=== PATIENT | male | born 1975 | race Caucasian/White ===

== ENCOUNTER 2017-05-06 12:30 | Emergency (ER) | payer OTHER ==
--- NOTE | ~2017-05-06 | EKG ---
PATIENT: CAROL RAMOS UNIT #: [id number] Ventricular Rate: 94 BPM Atrial Rate: 94 BPM P-R Interval: 144 ms QRS Duration: 82 ms Q-T Interval: 360 ms QTC Calculation(Bezet): 450 ms P [place]: 77 degrees Calculated R [place]: 48 degrees Calculated T [place]: 44 degrees Diagnosis Line: Normal sinus rhythm Diagnosis Line: Normal ECG Diagnosis Line: No previous ECGs available Diagnosis Line: Confirmed by INDIRA HERNDON MD ([id number]) on Diagnosis Line: 05/06/2017 10:20:53 PM INTERPRETING MD: GREGORY
--- NOTE | ~2017-05-06 | CR72 ---
[facility] A Service of [facility] RADIOLOGY TEXT RESULTS PATIENT: CAROL RAMOS LOCATION: [facility] : [birth year] UNIT #: [id number] AGE: [address]: Giancarlo Clemente MD SEX: M ORDER DR: [id number] [facility] [address]. [place], [place] [address] [id number] E MR#: [id number] Acc #: [id number] NAME: CAROL RAMOS. : 1975 SEX: M STUDY DATE/TIME: 05/06/2017 13:35 UNIT: [facility] ROOM: STUDY DESCRIPTION: CR Chest Single View Portable Attending Physician: Giancarlo Clemente M.D. Ordering Physician: Giancarlo Clemente M.D. Primary Care Physician: Primary Care Physician No MEDICAL IMAGING REPORT This report is preliminary unless electronic signature is present EXAM Chest portable, 05/06/2017 13:35 hours HISTORY 41-year-old man with overdose on spice today. Patient was found in the yard. Lethargy, unable to urinate. COMPARISON None FINDINGS Portable upright chest demonstrates normal cardiac, mediastinal and hilar contours. Lungs are mildly hyperinflated but clear. Question trace blunting of the right costophrenic sulcus. IMPRESSION Pulmonary hyperinflation with clear lungs. Question trace blunting of the right costophrenic sulcus which could represent pleural thickening or trace effusion. Dictated by... Ashley Mendoza M.D. THIS IS AN ELECTRONICALLY VERIFIED REPORT Ashley Mendoza M.D. at 05/07/2017 9:32 AM Lita TD: 05/06/2017 19:17 JOB #: [id number] MEDICAL IMAGING REPORT Page 1 of 1 COPY
--- NOTE | ~2017-05-06 | CT71 ---
[facility] A Service of [facility] RADIOLOGY TEXT RESULTS PATIENT: CAROL RAMOS LOCATION: [facility] : 77 UNIT #: [id number] AGE: [address]: Giancarlo Clemente MD SEX: M ORDER DR: [id number] [address] [address] [id number] E MR#: [id number] Acc #: [id number] NAME: CAROL RAMOS. : 1975 SEX: M STUDY DATE/TIME: 05/06/2017 15:07 UNIT: [facility] ROOM: STUDY DESCRIPTION: CT Head Wo Contrast Attending Physician: Giancarlo Clemente M.D. Ordering Physician: Giancarlo Clemente M.D. Primary Care Physician: Primary Care Physician No MEDICAL IMAGING REPORT This report is preliminary unless electronic signature is present EXAM Head CT no contrast CLINICAL HISTORY Syncope and headache for 1 day, confusion. PROCEDURE Axial unenhanced head CT. This CT exam was performed with one or more of the following radiation dose reduction techniques: automatic exposure control, adjustment of mA and/or kV according to patient size, and iterative reconstruction. FINDINGS Axial noncontrast images were obtained from the skull base to the vertex. Ventricular size and configuration are normal. There is no evidence of acute infarct or hemorrhage. There are no extra-axial fluid collections. No mass lesion or mass effect is seen. There are no skull fractures. IMPRESSION Normal noncontrast head CT. Dictated by... Afshin Dunn M.D. THIS IS AN ELECTRONICALLY VERIFIED REPORT Afshin Dunn M.D. at 05/09/2017 2:21 PM TEV/beverley TD: 05/06/2017 21:19 [facility] A Service [facility] RADIOLOGY TEXT RESULTS PATIENT: CAROL RAMOS LOCATION: [facility] : 77 UNIT #: [id number] AGE: [address]: Giancarlo Clemente MD SEX: M ORDER DR: JOB #: [id number] MEDICAL IMAGING REPORT Page 1 of 1 COPY
[~2017-05-06 12:30] MED LIST: LORTAB 5/500 TA1 TA1
[2017-05-06 13:42] LABS: BASOPHIL# 0.1 X10e3 (0-0.3); BASOPHIL% 1.3 % (0-2.5); EOSINOPHIL% 0.9 % (0.0-7.0); HEMATOCRIT 35.9 % (38.0-50.0); HEMOGLOBIN 12.2 gm/dL (13.0-16.0); LYMPHOCYTE# 1.2 X10e3 (1.0-3.5); LYMPHOCYTE% 25.1 % (17.0-45.0); MEAN CELL VOLUME 88.1 FL (83-96); MEAN CORPUSCULAR HEMOGLOBIN 29.8 PG (28-34); MEAN CORPUSCULAR HGB CONC 33.9 g/dL (30-36); MEAN PLATELET VOLUME 8.2 FL (6.5-11.5); MONOCYTE# 0.5 X10e3 (0-1.0); MONOCYTE% 9.8 % (3.0-12.0); NEUTROPHIL# 3.1 X10e3 (1.5-7.1); NEUTROPHIL% 62.9 % (40-75); PLATELET COUNT 275 X10e3 (140-420); RED BLOOD COUNT 4.07 X10e (3.90-5.60); RED CELL DISTRIBUTION WIDTH 13.7 % (11.0-15.5); WHITE BLOOD COUNT 4.9 X10e3 (4.0-10.5)
[2017-05-06 13:47] LABS: DIFF IND NO
[2017-05-06 14:03] LABS: ALBUMIN SERUM 3.4 g/dL (3.5-5.0); ALKALINE PHOSPHATASE 98 U/L (32-92); ALT (SGPT) 216 U/L (10-40); AST (SGOT) 178 U/L (10-42); BILIRUBIN, DIRECT 0.2 mg/dL (0.0-0.2); BILIRUBIN,INDIRECT 0.8 mg/dL (0.0-0.9); BLOOD UREA NITROGEN 8 mg/dL (9-23); BUN/CREATININE RATIO 7.27; CALCIUM SERUM 8.3 mg/dL (8.4-10.2); CARBON DIOXIDE 28 mmol/L (22-31); CHLORIDE 100 mmol/L (100-111); CREATININE SERUM 1.1 mg/dL (0.6-1.4); GLOM FILT RATE Estimated 83.5 mL/min (>60); GLUCOSE FASTING 144 mg/dL (70-110); POTASSIUM 3.2 mmol/L (3.5-5.1); PROTEIN TOTAL SERUM 6.3 g/dL (6.0-8.3); SALICYLATE <4.0 mg/dL; SODIUM 134 mmol/L (135-145)
[2017-05-06 14:08] LABS: ACETAMINOPHEN <10 ug/mL; ALCOHOL BLOOD <5 mg/dL (0)
[2017-05-06 14:22] LABS: URINE SOURCE CLEAN CATCH
[2017-05-06 14:25] LABS: URINE APPEARANCE CLEAR; URINE BILIRUBIN NEG (NEG); URINE BLOOD NEG (NEG); URINE COLOR YELLOW; URINE GLUCOSE NEG (NEG); URINE KETONE NEG (NEG); URINE LEUKOCYTE ESTERASE NEG (NEG); URINE NITRATE NEG (NEG); URINE PROTEIN NEG (NEG); URINE SPECIFIC GRAVITY 1.011 (1.003-1.035)
[2017-05-06 14:35] LABS: CULTURE INDICATED? NO
[2017-05-06 14:37] LABS: AMPHETAMINE POS (NEG); BARBITURATES NEG (NEG); BENZODIAZEPINES NEG (NEG); COCAINE NEG (NEG); MARIJUANA NEG (NEG); OPIATES POS (NEG); TRICYCLIC ANTIDEPRESSANTS NEG (NEG); U METHADONE NEG (NEG)
== END 2017-05-06 16:14 | disposition home or self-care (01) ==
LOC: CED 12:30
PROVIDERS: Emergency Medicine
DX: R41.82 Altered mental status, unspecified (principal); G40.909 Epilepsy, unspecified, not intractable, without status epilepticus; F17.210 Nicotine dependence, cigarettes, uncomplicated
CPT/HCPCS: 36415; 51701; 70450; 71010; 80048; 80076; 80307; 81003; 82550; 82947; 85025; 93005; 96360; 99284; G0480